=== PATIENT | female | born 1960 | race Caucasian/White ===

== ENCOUNTER 2023-11-27 12:03 | Emergency (ER) | payer OTHER, SELFPAY ==
[2023-11-27 12:06] VITALS: BP 188/81; PULSE 70; RESP 16; TEMP 36.8; O2SAT 100; BMI 27.1
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
[2023-11-27 12:42] VITALS: BP 188/81
[2023-11-27 12:45] VITALS: BP 188/81
[2023-11-27] MEDS: iohexol 350 mg/mL 500 mL Btl (per mL) IV (12:45)
[2023-11-27 14:08] VITALS: BP 188/81; RESP 17; O2SAT 97
== END 2023-11-27 14:09 | disposition home or self-care (01) ==
PROVIDERS: Emergency Provider Emergency Medicine
DX: S16.1XXA Strain of muscle, fascia and tendon at neck level, initial encounter (principal); V89.2XXA Person injured in unspecified motor-vehicle accident, traffic, initial encounter
CPT/HCPCS: 71260; 72125; 99285; Q9967